=== PATIENT | female | born 1960 | race Caucasian/White ===

== ENCOUNTER 2022-08-15 07:41 | Outpatient (REF) | payer BC, SELFPAY ==
--- NOTE | ~2022-08-15 | MM_ITS ---
EXAMINATION: BONE DENSITOMETRY CLINICAL INDICATION: Menopausal. COMPARISON: None (current study represents initial baseline exam). TECHNIQUE: Using a Multi[employer] DXA System (software version: 13.1) manufactured by [facility], dual-energy x-ray absorptiometry was performed of the lumbar spine and left hip. The images are of good technical quality. Summary results are attached. FINDINGS: AP SPINE L1-L4: BMD 1.032 g/cm2, Z-score -0.1, T-score -1.2, osteopenia. LEFT FEMUR, NECK: BMD 0.771 g/cm2, Z-score -0.7, T-score -1.9, osteopenia. LEFT FEMUR, TOTAL: BMD 0.768 g/cm2, Z-score -1.0, T-score -1.9, osteopenia. IDENTIFIED RISK FACTORS: Menopause, tobacco use (current smoker). HISTORY OF FRACTURE: None listed. MEDICATIONS: None listed. MM/XR DEXA axial skeleton IMPRESSION: 1. DIAGNOSIS: Osteopenia based on the lowest T-score value of -1.9 in the femoral neck and total femur applying World Health Organization criteria. 2. 10-YEAR FRACTURE RISK PREDICTION, FRAX: Major osteoporotic fracture (clinical spine, forearm, hip or shoulder) 10.0%. Hip fracture 2.1%. 3. Treatment Recommendations: NOF guidelines recommend consideration for treatment in postmenopausal women and men age 50 and older presenting with the following: -A hip or vertebral (clinical or morphometric) fracture. -T-score less than or equal to -2.5 at the femoral neck or spine after appropriate evaluation to exclude secondary causes. -Low bone mass at the hip or spine and a 10-year fracture probability by FRAX of greater than or equal to 3% for hip fracture or greater than or equal to 20% for major osteoporotic fracture based on the [place] adapted WHO algorithm. 4. Other Recommendations: All treatment decisions require clinical judgment and consideration of individual patient factors, including patient preferences, comorbidities, previous drug use, risk factors not captured in the FRAX model (e.g. frailty, falls, vitamin D deficiency, increased bone turnover, interval significant decline in bone density) and possible under or overestimation of fracture risk by FRAX. Additional medical evaluation for secondary cause of low bone mineral density may be appropriate. FUTURE SCAN RECOMMENDATION: People with diagnosed cases of osteoporosis or at high risk for fracture should have regular bone mineral density tests. For patients eligible for Medicare, routine testing is allowed once every 2 years. The testing frequency can be increased to one year for patients who have rapidly progressing disease, those who are receiving or discontinuing medical therapy to restore bone mass, or have additional risk factors.
--- NOTE | ~2022-08-15 | MM_ITS ---
EXAMINATION: MM SCREENING DIGITAL BREAST TOMOSYNTHESIS, BILATERAL CLINICAL INFORMATION: Screening. Asymptomatic. The lifetime risk of breast cancer based on the Tyrer-Cuzick Model is 11.4%. COMPARISON: Mammography: None available. TECHNIQUE: Digital breast tomosynthesis is performed in both the craniocaudal and mediolateral oblique views along with computer-aided detection (CAD). Synthesized 2D images are generated from the tomosynthesis. FINDINGS: The breasts are extremely dense, which lowers the sensitivity of mammography (ACR BI-RADS breast composition Category d). There is multiplicity and bilaterality of scattered and grouped calcifications. No definite abnormal dominant mass is appreciated with a region of asymmetric density about the deep superior aspect of the right breast, appearing to represent superimposition of fibroglandular tissue on tomosynthesis views. MM/MM tomosynthesis screening BI IMPRESSION: No mammographic evidence of malignancy. ASSESSMENT: BI-RADS 2: Benign. RECOMMENDATION: Routine annual mammography screening. This patient's information was entered into a reminder system with a target due date for their next mammogram.
== END 2022-08-15 07:42 | disposition home or self-care (01) ==
LOC: HO.MAMMO 07:41
PROVIDERS: PCP Internal Medicine; Visit Provider Internal Medicine
DX: Z12.31 Encounter for screening mammogram for malignant neoplasm of breast (principal); Z13.820 Encounter for screening for osteoporosis; Z78.0 Asymptomatic menopausal state
CPT/HCPCS: 77063; 77067; 77080

== ENCOUNTER 2022-12-11 10:19 | Day surgery (SDC) | payer BC, SELFPAY ==
--- NOTE | 2022-12-10 12:01 | P.CONAN_ITS ---
Documented by User: Jill Vicente NP 12/10/22 12:02 HPI - Anesthesia Eval Consult details Narrative: 62yo F for Colonoscopy [facility] Active Problems Active Problems: All Active Problems (Updated 12/10/22 @ 09:47 by Linda Asher RN) Osteopenia (Acute) Nicotine dependence, cigarettes, uncomplicated (Acute) Past Medical History Medical History (Updated 12/10/22 @ 09:47 by Linda Asher RN) History of uterine fibroid HTN (hypertension) Osteopenia Nicotine dependence, cigarettes, uncomplicated Surgical History Surgical History (Updated 12/11/22 @ 11:02 by Linda Asher RN) History of surgical procedure History of left knee surgery Social History Social History Patient Tobacco Use Status: Current everyday Tobacco user Tobacco use type: Cigarette Cigarettes Per Day: 15 Use of substances other than those prescribed or required for medical reasons: No Are you DNR?: No Advance Directives: No Advance Directives Information Provided: Yes Meds Allergies Allergy/AdvReac Type Severity Reaction Status Date / Time No Known Allergies Allergy Verified 12/11/22 11:02 [No Known Allergies*] Home Medications Medication Instructions Recorded Confirmed Last Taken Type valsartan 80 1 tab PO DAILY 12/10/22 12/11/22 12/11/22 History mg-hydrochlorothiazide 12.5 mg tablet Exam Exam Date and Time: December 10, 2022 120 Assessment and Plan Assessment Anesthesia Assessment: Chart Reviewed Documented by User: Shakir Quevedo MD 12/11/22 18:02 [facility] Past Medical History Medical History (Updated 12/10/22 @ 09:47 by Linda Asher RN) History of uterine fibroid HTN (hypertension) Osteopenia Nicotine dependence, cigarettes, uncomplicated Family History Family history of problems with anesthesia: No Surgical History Surgical History (Updated 12/11/22 @ 11:02 by Linda Asher RN) History of surgical procedure History of left knee surgery History of Problems with Anesthesia: No Social History Social History Patient Tobacco Use Status: Current everyday Tobacco user Tobacco use type: Cigarette Cigarettes Per Day: 15 Use of substances other than those prescribed or required for medical reasons: No Are you DNR?: No Advance Directives: No Advance Directives Information Provided: Yes Meds Allergies Allergy/AdvReac Type Severity Reaction Status Date / Time No Known Allergies Allergy Verified 12/11/22 11:02 [No Known Allergies*] Home Medications Medication Instructions Recorded Confirmed Last Taken Type valsartan 80 1 tab PO DAILY 12/10/22 12/11/22 12/11/22 History mg-hydrochlorothiazide 12.5 mg tablet Exam Airway Mallampati Class: IV Neck ROM: Full Loose/Missing/Broken Teeth: Yes (missing teeth) Assessment and Plan Assessment Anesthesia Assessment: Anesthesia Plan Discussed Final Anesthetic Review Family History of Problems with Anesthesia: No History of Problems with Anesthesia: No NPO: Yes Final Preanesthetic Review: Meds/Allgs Chart Reviewed, Consent Obtained/Reviewed and Anes Risks/Benef Reviewed Patient Risk: Intermediate Procedure Risk: Intermediate Anesthetic Plan Anesthetic Plan: MAC: and Agree w/ Assess. and Plan Disposition: Standard PACU
[2022-12-11 10:58] VITALS: BMI 26.3
[2022-12-11 11:08] VITALS: BP 177/111; PULSE 102; RESP 16; TEMP 36.5; O2SAT 98
[2022-12-11] MEDS: Lactated Ringers 1,000 ML 100 ML IVCONT (11:21)
[2022-12-11 11:22] VITALS: BP 170/106; PULSE 97
--- NOTE | 2022-12-11 13:35 | P.BOP_ITS ---
Brief Operative Note Date of Service: 12/11/22 Pre-op diagnosis: Screening Post-op diagnosis: other (Polyps) Procedure: Colonoscopy to the cecum with hot snare polypectomy x 3. Surgeon: Jacob Mcdonald Anesthesia: MAC Was an Identifier Horse used for this Procedure?: No Estimated blood loss (mL): 0 Pathology: other (A. Polyp at 60cm B. Cecal polyp C. Polyp at 20cm.) Condition: stable Disposition: PACU
[2022-12-11 13:37] VITALS: BP 105/62; PULSE 78; RESP 16; TEMP 36.5; O2SAT 97
[2022-12-11 13:53] VITALS: BP 135/81; PULSE 79; RESP 18; TEMP 36.5; O2SAT 95
--- NOTE | 2022-12-12 01:22 | OP_ITS ---
DATE OF SERVICE: 12/11/2022 SURGEON: Jacob Mcdonald MD INDICATIONS: The patient presents for evaluation of colorectal cancer screening. Full consent is obtained from her for this, including risks of bleeding and perforation. PREOPERATIVE DIAGNOSIS: Colon cancer screening. POSTOPERATIVE DIAGNOSIS: PROCEDURE PERFORMED: Colonoscopy to the cecum with hot snare polypectomy x 3. ESTIMATED BLOOD LOSS: COMPLICATIONS: ANESTHESIA: Monitored anesthesia care. ASSISTANTS: SPECIMENS: POSTOPERATIVE DIAGNOSES: Colon cancer screening, colon polyps, diverticulosis, internal and external hemorrhoids. DESCRIPTION OF PROCEDURE: The patient was placed in left lateral decubitus position. The digital rectal exam revealed prominent external hemorrhoids. The Olympus video pediatric colonoscope was entered into the rectum and advanced easily to the cecum. Once in the cecum, I did identify cecal pouch with appendiceal orifice and a normal-appearing ileocecal valve. The entire cecum was well visualized. In the cecum was approximately a 10 mm, somewhat raised polyp, which was removed by hot snare polypectomy and recovered by suction. The polypectomy site appeared clean, without any sign of residual polyp nor bleeding. The scope was then slowly withdrawn assessing all mucosal surfaces carefully. Preparation was excellent. At 60 cm was an approximately 8 mm polyp, which was removed by hot snare polypectomy and recovered by suction. The polypectomy site appeared clean, without any sign of residual polyp nor bleeding. At 20 cm was an approximately 8 mm polyp, which was removed by hot snare polypectomy and recovered by suction. The polypectomy site appeared clean, without any sign of residual polyp nor bleeding. I did not visualize any other polyps, colitis, or angiodysplasia. There was a mild amount of sigmoid diverticulosis. In the rectum, scope was retroflexed visualizing internal hemorrhoids, but no other pathology. The rectal mucosa appeared normal. The scope was straightened and withdrawn from the patient. She tolerated the procedure well and was returned to the recovery area in stable condition. IMPRESSION: 1. Colon polyps. 2. Diverticulosis. 3. Internal and external hemorrhoids. PLAN: The results of the pathology will be checked. I would recommend a repeat colonoscopy in 5 years for further surveillance. She was advised not to use any aspirin and NSAIDs for 1 week. MD RUTHIE Maritn/MARTHA / [phone] CHEMO
== END 2022-12-11 14:26 | disposition home or self-care (01) ==
PROVIDERS: PCP Internal Medicine; Visit Provider Internal Medicine
PROC: 0DJD8ZZ Inspection of Lower Intestinal Tract, Via Natural or Artificial Opening Endoscopic (ICD-10-PCS; CPT 45378; principal; 2022-12-11 11:40)
DX: Z12.11 Encounter for screening for malignant neoplasm of colon (principal); D12.0 Benign neoplasm of cecum; D12.4 Benign neoplasm of descending colon; D12.5 Benign neoplasm of sigmoid colon; K57.30 Diverticulosis of large intestine without perforation or abscess without bleeding; K64.8 Other hemorrhoids; K64.4 Residual hemorrhoidal skin tags; I10 Essential (primary) hypertension; Z79.1 Long term (current) use of non-steroidal anti-inflammatories (NSAID); Z79.899 Other long term (current) drug therapy; F17.210 Nicotine dependence, cigarettes, uncomplicated
CPT/HCPCS: 45385; 88305; J2250

== ENCOUNTER 2023-02-28 11:10 | Outpatient (REF) | payer BC, SELFPAY ==
--- NOTE | ~2023-02-28 | XR_ITS ---
EXAMINATION: XR BILATERAL KNEES CLINICAL INFORMATION: Bilateral knee pain COMPARISON: Bilateral knee radiographs 11/23/2015. TECHNIQUE: 4 views of each knee. FINDINGS: LEFT KNEE: There has been progression of degenerative changes in the left knee since 11/23/2015 with some increased narrowing and sclerosis of the medial compartment as well as some interval narrowing of the lateral compartment. Degenerative changes are also seen at the patellofemoral compartment with posterior osteophytes. There is an increasing area of sclerosis present in the lateral tibial metaphysis posteriorly. No acute fractures. A small joint effusion is present. No fractures or chondrocalcinosis. RIGHT KNEE: No significant degenerative changes are seen. Joint spaces are well maintained. A tiny joint effusion is present. No fractures or dislocations. XR/XR knee LT 4V IMPRESSION: 1. Progression of degenerative changes in the left knee as described above. 2. No significant degenerative changes in the right knee, but a tiny joint effusion is present. 3 presumed area of sclerosis in the posterior lateral tibial metaphysis.
--- NOTE | ~2023-02-28 | XR_ITS ---
EXAMINATION: XR BILATERAL KNEES CLINICAL INFORMATION: Bilateral knee pain COMPARISON: Bilateral knee radiographs 11/23/2015. TECHNIQUE: 4 views of each knee. FINDINGS: LEFT KNEE: There has been progression of degenerative changes in the left knee since 11/23/2015 with some increased narrowing and sclerosis of the medial compartment as well as some interval narrowing of the lateral compartment. Degenerative changes are also seen at the patellofemoral compartment with posterior osteophytes. There is an increasing area of sclerosis present in the lateral tibial metaphysis posteriorly. No acute fractures. A small joint effusion is present. No fractures or chondrocalcinosis. RIGHT KNEE: No significant degenerative changes are seen. Joint spaces are well maintained. A tiny joint effusion is present. No fractures or dislocations. XR/XR knee RT 4V IMPRESSION: 1. Progression of degenerative changes in the left knee as described above. 2. No significant degenerative changes in the right knee, but a tiny joint effusion is present. 3 presumed area of sclerosis in the posterior lateral tibial metaphysis.
== END 2023-02-28 11:11 | disposition home or self-care (01) ==
LOC: HO.XRAY 11:10
PROVIDERS: PCP Internal Medicine; Visit Provider Internal Medicine
DX: M25.561 Pain in right knee (principal); M25.562 Pain in left knee
CPT/HCPCS: 73564

== ENCOUNTER 2023-03-03 06:33 | Outpatient (REF) | payer BC, SELFPAY ==
[2023-03-03 07:05] LABS: MANUAL DIFF FLAG NO
[2023-03-03 07:45] LABS: Basophils Absolute Auto 0.1 X10*3/uL (0.0-0.2); Basophils Percent Auto 1.1 % (0-2); Eosinophils Absolute Auto 0.1 X10*3/uL (0.0-0.4); Eosinophils Percent Auto 1.8 % (0-4); Hematocrit 41.4 % (37.0-47.0); Hemoglobin 13.4 g/dl (12.0-16.0); Imm Gran Abs Auto 0.04 X10*3/uL (0.00-0.03); Imm Gran Pct Auto 0.5 % (0.0-0.4); Lymphocytes Absolute Auto 1.7 X10*3/uL (1.2-4.9); Lymphocytes Percent Auto 22.5 % (20-40); Mean Corpuscular HGB Conc 32.4 g/dl (31.0-35.0); Mean Corpuscular Hemoglobin 29.9 pg (27.0-33.0); Mean Corpuscular Volume 92.4 fL (80.0-98.0); Mean Platelet Volume 9.6 fL (9.4-12.3); Monocytes Absolute Auto 0.5 X10*3/uL (0.1-1.2); Neutrophils Percent Auto 67.1 % (45-73); Platelet Count 341 X10*3/uL (160-400); Red Blood Count 4.48 X10*6/uL (4.20-5.50); Red Cell Distribution Width 12.6 % (11.0-16.0); White Blood Count 7.4 X10*3/uL (4.8-10.8)
[2023-03-03 07:53] LABS: Estimated Average Glucose 105 mg/dL; Hemoglobin A1c % 5.3 % (<6.0)
[2023-03-03 08:17] LABS: Alanine Aminotransferase 12 U/L (0-31); Albumin Level 4.2 g/dL (3.5-5.0); Alkaline Phosphatase 68 U/L (39-117); Anion Gap 15 (12-20); Aspartate Amino Transferase 12 U/L (5-31); Bilirubin Total 0.4 mg/dL (0.0-1.0); Blood Urea Nitrogen 14 mg/dL (9-16); Calcium 10.4 mg/dL (8.4-10.2); Carbon Dioxide 29 mmol/L (22-29); Chloride 101 mmol/L (96-108); Cholesterol 204 mg/dL (<200); Estimated Glomerular Filt Rate > 60; Glucose Random 111 mg/dL (60-115); HDL Cholesterol 50 mg/dL (>40); LDL Cholesterol Calculated 122 mg/dL (<100); Potassium 3.6 mmol/L (3.3-5.1); Sodium 141 mmol/L (135-145); Total Protein 7.1 g/dL (6.5-8.0); Triglycerides 161 mg/dL (<150)
[2023-03-03 08:33] LABS: Vitamin D 25-OH Total 34.4 ng/mL (>30)
== END 2023-03-03 06:34 | disposition home or self-care (01) ==
LOC: HO.LAB 06:33
PROVIDERS: PCP Internal Medicine; Visit Provider Internal Medicine
DX: E78.00 Pure hypercholesterolemia, unspecified (principal); I10 Essential (primary) hypertension; J44.9 Chronic obstructive pulmonary disease, unspecified; R73.03 Prediabetes; M25.562 Pain in left knee; M85.80 Other specified disorders of bone density and structure, unspecified site
CPT/HCPCS: 36415; 80053; 80061; 82306; 83036; 85025

== ENCOUNTER 2023-08-21 07:45 | Outpatient (REF) | payer BC, SELFPAY ==
--- NOTE | ~2023-08-21 | MM_ITS ---
EXAMINATION: MM SCREENING DIGITAL BREAST TOMOSYNTHESIS, BILATERAL CLINICAL INFORMATION: Screening. Asymptomatic. COMPARISON: Mammography: This study is compared with prior exams dating back to 2022. TECHNIQUE: Digital breast tomosynthesis is performed in both the craniocaudal and mediolateral oblique views along with computer-aided detection (CAD). Synthesized 2D images are generated from the tomosynthesis. FINDINGS: The breasts are heterogeneously dense, which may obscure small masses (ACR BI-RADS breast composition Category c). There are no significant masses, abnormal calcifications, or other abnormalities. There are grouped, benign calcifications in the deep third of the medial aspect of the right breast. MM/MM tomosynthesis screening BI IMPRESSION: No mammographic evidence of malignancy. ASSESSMENT: BI-RADS BI-RADS 2 - Benign Findings RECOMMENDATION: Routine annual mammography screening. 1 year F/U This examination should not preclude the clinical evaluation of a suspicious palpable abnormality. This patient's information was entered into a reminder system with a target due date for their next mammogram.
== END 2023-08-21 07:46 | disposition home or self-care (01) ==
LOC: HO.MAMMO 07:45
PROVIDERS: PCP Internal Medicine; Visit Provider Internal Medicine
DX: Z12.31 Encounter for screening mammogram for malignant neoplasm of breast (principal)
CPT/HCPCS: 77063; 77067

== ENCOUNTER → 2023-08-21 08:00 | Outpatient (BNV) | payer BC, SELFPAY | PROVIDERS: PCP Internal Medicine; Visit Provider Radiology Diagnostic Radiology | DX: Z12.31 Encounter for screening mammogram for malignant neoplasm of breast (principal) | CPT/HCPCS: 77063; 77067 ==

== ENCOUNTER 2024-08-27 07:29 | Outpatient (REF) | payer BC, SELFPAY ==
--- OUTSIDE RECORDS SUMMARY | 2024-08-27 07:31 | XMS_ITS | Patient Health Record ---
Author Organization [facility] Address [address] [place] [address] Care Team Providers Care Medical Services Coordinator Name Role Phone Luna Adan Unavailable [phone] Allergies No Known Allergies Reason For Referral No Information Medications Medication SIG (Take, Route, Frequency, Duration) Notes Start Date End Date Status Valsartan-hydroCHLOROthiaz jillian 80-12.5 MG Oral for 90 Active Social History Tobacco Use: Social History Observation Description Date Details (start date - stop date) Current Smoker NA - NA Tobacco Use/Smoking Question Answer Notes Are you a current smoker How often do you smoke cigarettes? every day How many cigarettes a day do you smoke? 6-10 Alcohol Screen (Audit-C) Question Answer Notes Did you have a drink contain ing alcohol in the past year? Yes How often did you have a dri nk containing alcohol in the past year? 2 to 3 times a week (3 points) How many drinks did you have on a typical day when you were drinking in the past year? 1 or 2 drinks (0 point) Points 3 Interpretation Positive Sexual History Question Answer Notes Had sex in the past 12 months (vaginal, oral, or anal)? No Problems Problem Type SNOMED Code ICD Code Onset Dates Problem Status W/U Status Risk Notes Problem Postmenopausal bleeding (73721403) Postmenopausal bleeding (N95.0) Active confirmed Problem Essential hypertension (54681886) Essential (primary) hypertension (I10) Active confirmed Plan Of Treatment Pending Test Test Name Order Date MM Digital Mammo Screening 01/31/2021 Insurance Providers Payer Name Payer Address Payer Phone Subscriber Number Group Number Insured Name Patient Relationship to Insured Coverage Start Date Coverage End Date [employer] [address] [address] [place] [address] [id number] PRASHANT CHOI Self - patient is the insured Medical (General) History Medical History History ICD Code Essential (primary) hypertension I10 Postmenopausal bleeding N95.0 Surgical History Surgery Date(Month/Year) Knee Surgery 2016 Hospitalization History Reason Date(Month/Year) See Surgical Hx
== END 2024-08-27 07:30 | disposition home or self-care (01) ==
LOC: HO.MAMMO 07:29
PROVIDERS: Visit Provider Obstetrics & Gynecology Gynecology
DX: Z12.31 Encounter for screening mammogram for malignant neoplasm of breast (principal)
CPT/HCPCS: 77063; 77067

== ENCOUNTER → 2024-08-27 07:45 | Outpatient (BNV) | payer BC, SELFPAY | PROVIDERS: Visit Provider Internal Medicine | DX: Z12.31 Encounter for screening mammogram for malignant neoplasm of breast (principal) | CPT/HCPCS: 77063; 77067 ==

== ENCOUNTER 2025-02-03 12:43 | Outpatient (REF) | payer BC, SELFPAY ==
[2025-02-03 13:33] LABS: MANUAL DIFF FLAG NO
[2025-02-03 14:22] LABS: Hematocrit 40.7 % (37.0-47.0); Hemoglobin 13.0 g/dl (12.0-16.0); Imm Gran Abs Auto 0.03 X10*3/uL (0.00-0.03); Imm Gran Pct Auto 0.3 % (0.0-0.4); Lymphocytes Absolute Auto 1.5 X10*3/uL (1.2-4.9); Mean Corpuscular HGB Conc 31.9 g/dl (31.0-35.0); Mean Corpuscular Hemoglobin 29.8 pg (27.0-33.0); Mean Corpuscular Volume 93.3 fL (80.0-98.0); NRBC Abs Auto 0.000 X10*3/uL (0.0-0.012); NRBC Pct Auto 0.0 /100WBC (0.0-0.2); Platelet Count 372 X10*3/uL (160-400); Red Blood Count 4.36 X10*6/uL (4.20-5.50); White Blood Count 8.9 X10*3/uL (4.8-10.8)
[2025-02-03 14:57] LABS: Alanine Aminotransferase 16 U/L (0-31); Albumin Level 4.2 g/dL (3.5-5.0); Alkaline Phosphatase 81 U/L (39-117); Anion Gap 13 (12-20); Aspartate Amino Transferase 22 U/L (5-31); Blood Urea Nitrogen 15 mg/dL (9-16); Calcium 10.1 mg/dL (8.4-10.2); Carbon Dioxide 28 mmol/L (22-29); Chloride 104 mmol/L (96-108); Cholesterol 181 mg/dL (<200); Estimated Glomerular Filt Rate > 60; HDL Cholesterol 59 mg/dL (>40); Potassium 3.6 mmol/L (3.3-5.1); Sodium 141 mmol/L (135-145); Total Protein 7.2 g/dL (6.5-8.0); Triglycerides 63 mg/dL (<150)
[2025-02-03 15:04] LABS: Microalbum/Creatinine Ratio Ur 7.2 ug/mg cr (<30)
--- OUTSIDE RECORDS SUMMARY | 2025-02-03 16:07 | XMS_ITS | Patient Health Record ---
Author Organization [facility] Address [address] [place] [address] Care Team Providers Care Boilermaker Name Role Phone Tia (RETIRED) Saul JEREZ Primary Care Provide r Unavailable Jacob Mcdonald Unavailable [phone] Allergies No Known Allergies Reason For Referral No Information Medications Medication SIG (Take, Route, Frequency, Duration) Notes Start Date End Date Status Valsartan-hydroCHLOROthiaz jillian 80-12.5 MG Oral; Duration: 90 Active Advil 200 MG 1 tablet with food o r milk as needed Orally Three times a day PRN Active Social History Tobacco Use: Social History Observation Description Date Details (start date - stop date) Current Smoker NA - NA Tobacco Use/Smoking Question Answer Notes Patient is a current smoker How often do you smoke cigarettes? every day How many cigarettes a day do you smoke? 11-20 Alcohol Screen Question Answer Notes Did you have a drink contain ing alcohol in the past year? Yes How often did you have a dri nk containing alcohol in the past year? 2 to 3 times a week (3 points) How many drinks did you have on a typical day when you were drinking in the past year? 1 or 2 drinks (0 point) How often did you have 6 or more drinks on one occasion in the past year? Never (0 point) Points 3 Interpretation Positive Section Notes: Smoker 3/4 ppd; no sig alcoh ol Problems Problem Type SNOMED Code ICD Code Onset Dates Problem Status W/U Status Risk Notes Problem Screening for malignant neoplasm of colon (887950281) Screen for colon cancer (Z12.11) Active confirmed Problem Preprocedural examination ([id number]) Preprocedural examination (Z01.818) Active confirmed Problem Diverticulosis of colon (863741924) Diverticulosis of colon (K57.30) Active confirmed Plan Of Treatment Future Test Test Name Order Date COLONOSCOPY 08/13/2022 Insurance Providers Payer Name Payer Address Payer Phone Subscriber Number Group Number Insured Name Patient Relationship to Insured Coverage Start Date Coverage End Date [facility] [employer] [address] [place] [address] [id number] PRASHANT CHOI Self - patient is the insured Medical (General) History Medical History History ICD Code Denies [place],DM,CVA,Lung disease,renal dise ase Hypertension Surgical History Surgery Date(Month/Year) Uterine fibroids Knee
[2025-02-04 07:19] LABS: Syphilis Screen Nonreactive (Nonreactive)
[2025-02-04 08:08] LABS: HBS Num1 3.16 mIU/mL (0-7.99); HBc Num1 0.05 S/CO (0.00-0.79); HBsAGNum1 0.31 S/CO (0.00-0.99); HIV Num 1 0.05 S/CO (0.00-0.99); Hepatitis A Antibody IgM 0.13 Index (0-0.79); Hepatitis B Surface Antigen Negative (Negative); ~HepC Num1 0.06 S/CO (0.00-0.79); ~Hepatitis A Antibody IgM Nonreactive (Nonreactive); ~Hepatitis B Surface Antibody NONREACTIVE (Nonreactive); ~Hepatitis C Antibody Nonreactive (Nonreactive)
== END 2025-02-03 12:44 | disposition home or self-care (01) ==
LOC: HO.LAB 12:43
PROVIDERS: PCP Student in an Organized Health Care Education/Training Program; Visit Provider Student in an Organized Health Care Education/Training Program
DX: Z00.00 Encounter for general adult medical examination without abnormal findings (principal); I10 Essential (primary) hypertension; E78.49 Other hyperlipidemia; L98.9 Disorder of the skin and subcutaneous tissue, unspecified; F17.210 Nicotine dependence, cigarettes, uncomplicated; Z79.899 Other long term (current) drug therapy
CPT/HCPCS: 36415; 80053; 80061; 82043; 82306; 82570; 83036; 84443; 85025; 86704; 86706; 86709; 86780; 86803; 87340; 87389; 96127

== ENCOUNTER 2025-02-03 12:43 | Outpatient (AMB) | payer BC, SELFPAY ==
--- NOTE | 2025-02-03 12:46 | A.OFFPC_ITS ---
Vital Signs 02/03/25 12:51 Height 5 ft 2.6 in Weight 153 lb BMI 27.4 BP 170/92 H Blood Pressure Location Lt brachial Position Sitting Respiration 18 Pulse 99 Pulse Source Pulse Oximeter Temp 97.8 F Temp Source Temporal Artery Scan Pulse Oximetry (%) 98 Oxygen Delivery Method Room Air Intake Visit Reasons: CRIS /Dr Weber [employer] Tech Required: No Accompanied by: Self / Same As Patient Allergies No Known Allergies (No Known Allergies*) Allergy (Verified 02/03/25 12:47) Medication List - Last Reconciled 02/03/25 by Rashawn Vizcaino MD valsartan-hydrochlorothiazide 80-12.5 mg 1 tab PO DAILY 30 days Tobacco use date assessed: 02/03/25 Dental Screening Dental Screen Date: 02/03/25 Did you have a dental visit in the last 12 months?: No Did you have a dental problem in the last 6 months where you did not have access to dental care?: No Was dental information given to patient?: Patient has dentist HPI HPI Comments History of Present Illness Details The patient is a 64-year-old female presenting for management of hypertension. She has a history of hypertension and is prescribed valsartan-hydrochlorothiazide 160-12.5 mg, which she reports taking twice a day, once in the morning and once at night. Her blood pressure today was elevated at 170/92 mmHg. The patient has a significant smoking history of approximately 15 cigarettes per day for 30-40 years, equating to a 38-xayq-zsxn history, but has never attempted to quit or used cessation aids. She reports drinking alcohol, specifically about 3 glasses of wine, 2-3 times per week. She denies any other medical conditions or drug allergies. Past medical history is notable for hyperlipidemia, with an LDL of 122 mg/dL in February 2023, for which she is not on medication. Surgical history includes a fibroid removal. Family history is positive for a maternal heart attack. The patient is up to date on her health screenings, including a colonoscopy in November 2022, a negative mammogram in July, and a Pap smear in 2020. She has had a prior bone scan. She has received the COVID vaccine but not this year's flu shot. 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 She reports a good mood and denies any depression or anxiety. Medical History: - Hypertension - Hyperlipidemia - History of uterine fibroids Surgical History: - Fibroid removal Medications: - Valsartan-hydrochlorothiazide 160-12.5 mg, one tablet taken twice daily for hypertension. Family History: - Mother: History of heart attack. - Denies family history of diabetes or c ancer. Diagnostic Results: - Labs: Cholesterol from February 2023 w as high, with an LDL of 122 mg/dL. - Tests and Diagnostics: Colonoscopy in November 2022 was normal; next one due in 2027. - Tests and Diagnostics: Mammogram in [place] of this year was negative; scheduled for next July. - Tests and Diagnostics: Pap smear in was normal; not due until 2027. Social History: - Employment: Retired third-grade [employer]. - Tobacco Use: Patient smokes approximat richelle 15 cigarettes per day and has for 30-40 years. This corresponds to a 63-auow-lhog smoking history. - Alcohol Use: Patient reports drinking a few glasses of wine (about 3) two to three times per week. - Illicit Drug Use: Denies use of mariju luz maria, heroin, or cocaine. - Lifestyle: Patient reports being busy and enjoying life. Counseled on the importance of staying active and reducing salt intake. [facility] Medical History (Updated 02/03/25 @ 13:18 by Rashawn Vizcaino MD) Facial skin lesion Hyperlipidemia Annual physical exam History of uterine fibroid HTN (hypertension) Osteopenia Nicotine dependence, cigarettes, uncomplicated Surgical History (Updated 02/02/25 @ 16:14 by [place]) History of colonoscopy (~12/11/22) History of ovarian cystectomy History of left knee surgery Social History Housing: House Patient Tobacco Use Status: Current everyday Tobacco user Tobacco use type: Cigarette Cigarettes Per Day: 15 e-Cigarette/Vaping Use: Never Used service: No Current occupational status: retired Questionnaire PHQ-9 Over the last 2 weeks, how often have you been bothered by any of the following problems? 1. Little interest or pleasure in doing things: not at all 2. Feeling down, depressed, or hopeless: not at all 3. Trouble falling or staying asleep, or sleeping too much: not at all 4. Feeling tired or having little energy: not at all 5. Poor appetite or overeating: not at all 6. Feeling bad about yourself - or that you are a failure or have let yourself or your family down: not at all 7. Trouble concentrating on things, such as reading the newspaper or watching television: not at all 8. Moving or speaking so slowly that other people could have noticed. Or the opposite - being so fidgety or restless that you have been moving around a lot more than usual: not at all 9. Thoughts that you would be better off or of hurting yourself in some way: not at all Total score: 0 Depression Screening Interpretation: Negative Depression Screening Done: Yes 28857 - PHQ-9 Billing: Yes Source: Developed by Drs. Jacob Rajput, Regina Buckner, Puma Black and colleagues, with an educational zohaib from [employer]. Thrive Questionnaire Date Thrive assessed: 02/03/25 I am a: Patient What is your living situation today?: I have a steady place to live Within the past 12 months, did the food you bought not last and you didn't have the money to get more?: Never true Within the past 12 months, did you worry whether your food would run out before you got money to buy more?: Never true Do you have trouble paying for medicines?: No Do you have trouble getting transportation to medical appointments?: No Do you have trouble paying your heating and electricity bill?: No Do you have trouble taking care of your child, family member or friend?: No Do you have trouble with day-to-day activities such as bathing, preparing meals, shopping, managing finances, etc.?: No Are you currently unemployed and looking for a job?: No Are you interested in more education?: No THRIVE Score: 0 AUDIT C Alcohol Use Questionnaire (AUDIT-C) 1. How often do you have a drink containing alcohol?: 2-3 times a week 2. How many drinks containing alcohol do you have on a typical day when you are drinking?: 3 or 4 3. How often do you have six or more drinks on one occasion?: Never Total Score: 4 Score Reviewed/Action Taken: Yes MARISOL-7 AMB Questionnaire MARISOL-7 Date MARISOL - 7 assessed: 02/03/25 Feeling nervous, anxious, or on edge: 0 = Not at all Not being able to stop or control worryin = Not at all Worrying too much about different things: 0 = Not at all Trouble relaxin = Not at all Being so restless that it is hard to sit still: 0 = Not at all Becoming easily annoyed or irritable: 0 = Not at all Feeling afraid as if something awful might happen: 0 = Not at all Total MARISOL-7 score (0-4 normal; 5-9 mild; 10-14 moderate; 15-21 severe): 0 Source: Developed by Drs. Jacob Rajput, Regina Buckner, Puma Black and colleagues, with an educational zohaib from [employer]. MARISOL-7 Assessment Billing MARISOL-7 Assessment Tool: MARISOL-7 Assessment 66720 Review of Systems Narrative - Constitutional: Denies weight loss. Denies severe headaches or chest pain as acute symptoms. - Integumentary: Reports a recently noticed, non-bothersome lesion near her ear that has not grown in size. - Psychiatric: Reports good mood. Denies depression or anxiety. - All other systems reviewed and are negative. All systems reviewed & are unremarkable except as reviewed in HPI and above Physical exam (Primary Care) Vital Signs: Last Vital Signs Temp 97.8 F 02/03/25 12:51 Pulse 99 02/03/25 12:51 Resp 18 02/03/25 12:51 BP 170/92 H 02/03/25 12:51 Pulse Ox 98 02/03/25 12:51 Oxygen Delivery Method Room Air 02/03/25 12:51 BMI result Body Mass Index 27.4 Tobacco/Smoking Status: Tobacco use Status Tobacco use date assessed 02/03/25 02/03/25 12:49 Patient Tobacco Use Status Current everyday Tobacco 02/03/25 12:49 Tobacco use type Cigarette 02/03/25 12:49 e-Cigarette/Vaping Use Never Used 02/03/25 12:53 Are you ready to quit: Yes Tobacco cessation counseling provided: Yes Relapse Prevention: discussed the importance of a supportive environment and discussed extending NRT Number of minutes spent counselin CPT code: 80323 - 4-10 Minutes Depression Screening Interpretation: Negative Narrative General: +Alert and oriented, Well nourished, No acute distress. Eye: Pupils are equal, round and reactive to light, Intact accommodation, Extraocular movements are intact, Normal conjunctiva, Vision unchanged. HENT: Normocephalic, Atraumatic, Tympanic membranes are clear, Normal hearing, Oral mucosa is moist, No pharyngeal erythema, Ear canals patent. Respiratory: Lungs CTA bilaterally, No wheeze, Respirations are non-labored. Cardiovascular: Regular rate, Regular rhythm, S1 auscultated, S2 auscultated, No murmur, Good pulses equal in all extremities, Normal peripheral perfusion, No edema. Gastrointestinal: Soft, Non-tender, Non-distended, Normal bowel sounds, No organomegaly. Musculoskeletal: Normal range of motion, Normal strength, No tenderness, No swelling, No deformity, Normal gait. Integumentary: Warm, Dry, [place], Intact. Neurologic: Alert, Oriented, Normal sensory, Normal motor function, No focal defects, Cranial Nerves II-XII are grossly intact, Normal deep tendon reflexes. Psychiatric: Cooperative, Appropriate mood & affect, Normal judgment. Coding Level of Care Code New Pt Level 4 (18123) New Pt Prev Care >65yr (42954) Diagnoses Primary hypertension I10 Hypertension type: primary hypertension Nicotine dependence, cigarettes, uncomplicated F17.210 Other hyperlipidemia E78.49 Hyperlipidemia type: other hyperlipidemia Facial skin lesion L98.9 Annual physical exam Z00.00 Additional Codes PHQ-9 - 30312 - PHQ-9 Billing: Yes ([id number]) MARISOL-7 Assessment Billing - MARISOL-7 Assessment Tool: MARISOL-7 Assessment 15338 ([id number]) Vital Signs *Quality* - CPT code: 98338 - 4-10 Minutes ([id number]) Comment 60400-64 Assessment & Plan Assessment & Plan (1) HTN (hypertension): Comment: - The patient presents with significantly elevated blood pressure (174/100 mmHg) despite taking valsartan-hydrochlorothiazide. - The current regimen of splitting the dose will be adjusted; she is instructed to take both pills together in the morning. - This change is to evaluate the effect of a consolidated dose, as the medication has a long duration of action. - The patient will monitor her blood pressure at home twice daily and follow up in two weeks. - If her readings remain high, medication adjustments will be made. - The possibility of white coat hypertension was discussed. - She was also counseled on reducing dietary salt intake. Code(s): I10 - Essential (primary) hypertension Category: Medical Qualifiers: Hypertension type: primary hypertension Qualified Code(s): I10 - Essential (primary) hypertension (2) Nicotine dependence, cigarettes, uncomplicated: Comment: - The patient has a 71-djxf-shmk smoking history and is at a significantly higher risk for cancer. - She is willing to quit. - A prescription for nicotine patches has been sent to her pharmacy. - She was strongly counseled on smoking cessation, with a goal to quit or significantly reduce smoking within three weeks. - An order for an annual lung cancer screening will be placed. Code(s): F17.210 - Nicotine dependence, cigarettes, uncomplicated Category: Medical (3) Hyperlipidemia: Comment: - The patient had an elevated LDL of 122 in February 2023. - Given her comorbidities and family history, she would typically be a candidate for cholesterol medication based on current ASCVD risk guidelines. - However, a repeat lipid panel will be obtained first. - If the cholesterol remains high, medication will be started, and she will be notified via the patient portal. Code(s): E78.5 - Hyperlipidemia, unspecified Category: Medical Qualifiers: Hyperlipidemia type: other hyperlipidemia Qualified Code(s): E78.49 - Other hyperlipidemia (4) Facial skin lesion: Comment: - The patient recently noticed a small, stable bump near her ear. - On examination, it appears to be a subcutaneous lesion, possibly an enlarged lymph node or cyst, and does not have concerning features. - The plan is to monitor the lesion for any changes in size. - It will be re-evaluated at the follow-up visit. Code(s): L98.9 - Disorder of the skin and subcutaneous tissue, unspecified Category: Medical (5) Annual physical exam: Comment: - Comprehensive baseline lab work was ordered, including electrolytes, CBC, diabetes screen, hepatitis panel, HIV, cholesterol, syphilis, thyroid function, and vitamin D levels, along with a urinalysis. - The patient was advised to get her annual flu shot. - She is up to date on other age-appropriate screenings. Code(s): Z00.00 - Encounter for general adult medical examination without abnormal findings Category: Medical Plan: Health Maintenance: - Tobacco Cessation: Counseled on quitting smoking due to a 67-ksrb-zpbv history. A prescription for nicotine patches was provided. - Cancer Screening: An order for an annual lung cancer screening will be placed due to her significant smoking history. - Immunizations: Advised to get the flu shot. She is up-to-date on her COVID vaccine. - Cardiovascular Health: Counseled on salt reduction to help manage hypertension. Counseled on the importance of maintaining an active lifestyle. - Screenings Update: The patient is current with her colonoscopy (due 2027), mammogram (due next July), and Pap smear (due 2027). - Laboratory Monitoring: Comprehensive labs were ordered to establish a baseline, including a lipid panel to re-evaluate her hyperlipidemia. Patient was informed and verbally consented to the use of an ambient scribe for clinic note documentation during this visit. Plan I discussed with the patient her significantly elevated blood pressure readings today, 170/92 and 174/100 mmHg. I explained the rationale for adjusting her current medication regimen by taking both tablets of valsartan- hydrochlorothiazide in the morning rather than splitting the dose, as this may provide better 24-hour coverage. We discussed the importance of home blood pressure monitoring to differentiate from potential white coat hypertension and to guide future treatment, with a plan to follow up in two weeks. I emphasized that if she experiences severe headaches or chest pain, she should seek immediate medical attention. I strongly counseled her on the urgent need for smoking cessation, given her 12-llrs-vtgu history and the associated health risks, including various cancers. I prescribed nicotine patches to assist her quitting attempt and informed her that a referral for an annual lung cancer screening would be placed. We reviewed her previous high cholesterol result and discussed that based on current guidelines, she would be a candidate for medication. I explained that we would repeat the labs first to confirm the levels before initiating treatment. Regarding the lesion near her ear, I reassured her that it does not currently appear concerning but advised her to monitor it for any changes. I outlined the plan for comprehensive baseline blood work and recommended she get her annual flu shot. The patient agreed with the plan and scheduled a follow-up appointment in two weeks. Orders: Orders Complete Blood Count Auto Diff Today Z00.00 - Encounter for general adult medical examination without abnormal findings Hemoglobin A1c Today Z00.00 - Encounter for general adult medical examination without abnormal findings Hepatitis A,B,C Profile Today Z00.00 - Encounter for general adult medical examination without abnormal findings HIV Ab/Ag Today Z00.00 - Encounter for general adult medical examination without abnormal findings Lipid Panel Today Z00.00 - Encounter for general adult medical examination without abnormal findings TSH reflex Free T4 Today Z00.00 - Encounter for general adult medical examination without abnormal findings Vitamin D 25-OH Total Today Z00.00 - Encounter for general adult medical examination without abnormal findings Microalbumin, Random (w Creat) Today Z00.00 - Encounter for general adult medical examination without abnormal findings Comprehensive Met. Panel Today Z00.00 - Encounter for general adult medical examination without abnormal findings Syphilis Screen Today Z00.00 - Encounter for general adult medical examination without abnormal findings Referrals Lung Cancer Screening Referral F17.210 - Nicotine dependence, cigarettes, uncomplicated Medications: New nicotine 1 patch transdermal Q24H 28 ea 0RF Patient Instructions: - Take your blood pressure medication (valsartan-hydrochlorothiazide) as one dose in the morning instead of splitting it between morning and evening. - Check your blood pressure at home twice a day (once in the morning and once in the afternoon/evening) and write down the numbers. Make sure you are relaxed and seated for 10-15 minutes before checking. - We have sent a prescription for nicotine patches to your pharmacy ([facility] in [place]) to help you quit smoking. Please start using them as directed. - We have ordered an annual lung cancer screening for you. The facility will contact you to schedule it. - Go to the hospital lab to have your blood drawn today. The orders are already in the system. - Reduce the amount of salt in your diet, as this can help lower your blood pressure. - Please get your annual flu shot. You can get this at a local pharmacy. - Keep an eye on the small bump near your ear. Let us know if it grows in size or changes in any way. - Return to the clinic in two weeks for a follow-up visit to review your blood pressure and progress. - If you experience severe headaches or chest pain, seek emergency medical care immediately.
[2025-02-03 12:51] VITALS: BP 170/92; PULSE 99; RESP 18; TEMP 36.6; O2SAT 98; BMI 27.4
== END 2025-02-03 13:13 | disposition home or self-care (01) ==
LOC: HO.HMCHD 12:43
PROVIDERS: PCP Student in an Organized Health Care Education/Training Program; Visit Provider Student in an Organized Health Care Education/Training Program
DX: Z00.00 Encounter for general adult medical examination without abnormal findings (principal); I10 Essential (primary) hypertension; F17.210 Nicotine dependence, cigarettes, uncomplicated; E78.49 Other hyperlipidemia; L98.9 Disorder of the skin and subcutaneous tissue, unspecified

== ENCOUNTER 2025-02-17 13:40 | Outpatient (AMB) | payer BC, SELFPAY ==
--- NOTE | 2025-02-17 13:44 | A.OFFPC_ITS ---
Vital Signs 02/17/25 13:48 Height 5 ft 2 in Weight 153 lb BMI 28.0 BP 160/86 H Blood Pressure Location Lt brachial Position Sitting Pulse 75 Pulse Source Pulse Oximeter Temp 98.6 F Temp Source Temporal Artery Scan Pulse Oximetry (%) 97 Oxygen Delivery Method Room Air Intake Visit Reasons: 2 Week F/U Bld pressure check Intake Note: Possible arthritis pain [employer] Required: No Accompanied by: Self / Same As Patient Allergies No Known Allergies (No Known Allergies*) Allergy (Verified 02/17/25 13:44) Medication List - Last Reconciled 02/17/25 by Rashawn Vizcaino MD atorvastatin (Lipitor) 20 mg PO BEDTIME 90 days cholecalciferol (vitamin D3) 1,250 mcg PO QWEEK 12 weeks nicotine 1 patch transdermal Q24H valsartan-hydrochlorothiazide 80-12.5 mg 1 tab PO DAILY 30 days Tobacco use date assessed: 02/03/25 Dental Screening Dental Screen Date: 02/03/25 HPI HPI Comments History of Present Illness Details History of Present Illness The patient is a 64 year old individual presenting for management of chronic conditions and smoking cessation. The patient successfully quit smoking 10 days ago with the assistance of nicotine patches and experiences urges no more than three times a day, which quickly resolve. The patient has a 25-year history of psoriasis, which initially presented after an untreated streptococcal infection. The condition has been manageable, improving with sun exposure, and the patient's hands have cleared up as of two months ago. The patient also has psoriasis on the base of the foot and is not currently using any medicated creams but is interested in trying some. The patient reports facial redness, consistent with rosacea, which is not bothersome but is aesthetically displeasing, and has not been previously treated. For hypertension, the patient is prescribed hydrochlorothiazide-valsartan 12.5- 80 mg and has been taking two pills in the morning, but home blood pressure readings are variable, ranging up to the 160s. The patient also takes atorvastatin 20 mg at night for high cholesterol without any muscle pain, and a weekly vitamin D supplement. The patient experiences swollen wrists, which are worse in cold weather, and manages the pain with Tylenol, having taken two pills this morning for the swelling. Overall blood work is reportedly great. Medical History: - Psoriasis, diagnosed 25 years ago foll owing an untreated streptococcal infection. - Hypertension - Hypercholesterolemia - Vitamin D deficiency - Rosacea - Arthritis - Nicotine dependence Medications: - Hydrochlorothiazide-valsartan 12.5/80 mg, two tablets in the morning for hypertension - Vitamin D supplement, once weekly - Atorvastatin 20 mg, at night for hyper cholesterolemia - Nicotine patch for smoking cessation - Tylenol for arthritis pain Diagnostic Results: - Labs: Recent blood work is reported as great. - Home Blood Pressure Monitoring: Readin gs have been variable, ranging from 124 to the 160s. Social History - Substance Use: The patient is a former smoker who quit 10 days prior to the visit and is currently using nicotine patches. - Housing: The patient lives in [place] for half of the year. [facility] Medical History (Updated 02/17/25 @ 14:14 by Rashawn Vizcaino MD) Arthritis Psoriasis Vitamin D deficiency Facial skin lesion Hyperlipidemia Annual physical exam History of uterine fibroid HTN (hypertension) Osteopenia Nicotine dependence, cigarettes, uncomplicated Surgical History (Updated 02/02/25 @ 16:14 by [place]) History of colonoscopy (~12/11/22) History of ovarian cystectomy History of left knee surgery Social History Housing: House Patient Tobacco Use Status: Current everyday Tobacco user Tobacco use type: Cigarette Cigarettes Per Day: 15 e-Cigarette/Vaping Use: Never Used service: No Current occupational status: retired Questionnaire Thrive Questionnaire Date Thrive assessed: 02/03/25 MARISOL-7 AMB Questionnaire MARISOL-7 Date MARISOL - 7 assessed: 02/03/25 Source: Developed by Drs. Jacob Rajput, Regina Buckner, Puma Black and colleagues, with an educational zohaib from [employer]. Review of Systems Narrative Review of Systems - Dermatologic: Reports a history of psoriasis for 25 years with manageable symptoms, currently present on the hands and feet. - Also reports facial redness that is not bothersome. - Musculoskeletal: Reports swollen wrists, aggravated by cold weather. - Denies muscle pains from atorvastatin. - Psychiatric: Reports occasional urges to smoke, no more than three times daily. - Reports feeling anxious about high blood pressure readings. All systems reviewed & are unremarkable except as reviewed in HPI and above Physical exam (Primary Care) Vital Signs: Last Vital Signs Temp 98.6 F 02/17/25 13:48 Pulse 75 02/17/25 13:48 BP 160/86 H 02/17/25 13:48 Pulse Ox 97 02/17/25 13:48 Oxygen Delivery Method Room Air 02/17/25 13:48 BMI result Body Mass Index 28.0 Tobacco/Smoking Status: Tobacco use Status Tobacco use date assessed 02/03/25 02/17/25 13:52 Patient Tobacco Use Status Current everyday Tobacco 02/17/25 13:52 Tobacco use type Cigarette 02/17/25 13:52 e-Cigarette/Vaping Use Never Used 02/17/25 13:52 Thrive Assessment: Date of Thrive Assessment Date Thrive assessed 02/03/25 02/17/25 13:52 Narrative Physical Exam General: +Alert and oriented, Well nourished, No acute distress. Eye: Pupils are equal, round and reactive to light, Intact accommodation, Extraocular movements are intact, Normal conjunctiva, Vision unchanged. HENT: Normocephalic, Atraumatic, Tympanic membranes are clear, Normal hearing, Oral mucosa is moist, No pharyngeal erythema, Ear canals patent. Respiratory: Lungs CTA bilaterally, No wheeze, Respirations are non-labored. Cardiovascular: Regular rate, Regular rhythm, S1 auscultated, S2 auscultated, No murmur, Good pulses equal in all extremities, Normal peripheral perfusion, No edema. Gastrointestinal: Soft, Non-tender, Non-distended, Normal bowel sounds, No organomegaly. Musculoskeletal: Normal range of motion, Normal strength, No tenderness, No swelling, No deformity, Normal gait. Integumentary: Warm, Dry, Vamo, Intact. Noted redness on cheeks, possibly rosacea. Neurologic: Alert, Oriented, Normal sensory, Normal motor function, No focal defects, Cranial Nerves II-XII are grossly intact, Normal deep tendon reflexes. Psychiatric: Cooperative, Appropriate mood & affect, Normal judgment. Coding Level of Care Code Est Pt Level 4 (17661) Complex visit Add On G2211 Diagnoses Primary hypertension I10 Hypertension type: primary hypertension Other hyperlipidemia E78.49 Hyperlipidemia type: other hyperlipidemia Nicotine dependence, cigarettes, uncomplicated F17.210 Psoriasis L40.9 Facial skin lesion L98.9 Arthritis M19.90 Vitamin D deficiency E55.9 Assessment & Plan Assessment & Plan (1) HTN (hypertension): Comment: - Despite taking a double dose of hydrochlorothiazide-valsartan, home blood pressures remain elevated. - The plan is to add amlodipine 5 mg daily and to prescribe a higher-dose combination pill of valsartan-hydrochlorothiazide to replace the two separate pills. - The patient was counseled on weight loss of 5-10 pounds, salt reduction, and continuing to monitor blood pressures at home. Code(s): I10 - Essential (primary) hypertension Category: Medical Qualifiers: Hypertension type: primary hypertension Qualified Code(s): I10 - Essential (primary) hypertension (2) Hyperlipidemia: Comment: - The condition is stable on current medication. - The plan is to continue atorvastatin 20 mg at night. Code(s): E78.5 - Hyperlipidemia, unspecified Category: Medical Qualifiers: Hyperlipidemia type: other hyperlipidemia Qualified Code(s): E78.49 - Other hyperlipidemia (3) Nicotine dependence, cigarettes, uncomplicated: Comment: - The patient has successfully quit smoking for 10 days using nicotine patches. - The plan is to continue using the patches, with the option to obtain more [id number] or via prescription if urges to smoke persist. Code(s): F17.210 - Nicotine dependence, cigarettes, uncomplicated Category: Medical (4) Psoriasis: Comment: - The patient has a long-standing history with involvement of hands and feet. - The plan includes prescribing a clobetasol cream for topical use and placing a referral to a floor worker well service. - The patient was educated on the benefits of skin hydration and sun exposure. Code(s): L40.9 - Psoriasis, unspecified Category: Medical (5) Facial skin lesion: Comment: - Facial erythema is noted. - The plan is to prescribe topical metronidazole cream for twice-daily application. Code(s): L98.9 - Disorder of the skin and subcutaneous tissue, unspecified Category: Medical (6) Arthritis: Comment: - The patient reports wrist swelling and pain. - The recommendation is to continue managing symptoms with Tylenol, up to two 500 mg tablets twice a day as needed. Code(s): M19.90 - Unspecified osteoarthritis, unspecified site Category: Medical (7) Vitamin D deficiency: Comment: - The patient is currently on supplementation. - The plan is to complete the 12-week course of once-weekly vitamin D and then discontinue it. Code(s): E55.9 - Vitamin D deficiency, unspecified Category: Medical Plan: Health Maintenance: - Smoking Cessation: The patient quit smoking 10 days ago and is using nicotine patches. - Weight Management: Advised to lose 5-15 pounds to help manage blood pressure. - Diet: Recommended reducing salt intake. - Follow-up: A telehealth appointment is scheduled in two months to monitor blood pressure. - Dermatology: A referral will be sent for psoriasis management. Patient was informed and verbally consented to the use of an ambient scribe for clinic note documentation during this visit. Plan I commended the patient on quitting smoking 10 days ago, which is a significant achievement. We discussed that with continued abstinence, the patient's breathing, taste, and smell will improve. I advised the patient to continue using nicotine patches and to obtain more if urges to smoke persist. Regarding the patient's uncontrolled hypertension, I explained the plan to add amlodipine 5 mg and prescribe a higher-dose combination pill for the valsartan- hydrochlorothiazide to improve control. I reassured the patient that the current blood pressure readings are very close to the target and that lifestyle changes like weight loss and salt reduction will also help. For the patient's psoriasis, I recommended a topical cream and a referral to a floor worker well service for specialized management. We also discussed initiating topical metronidazole for the facial rosacea. For arthritis pain, I recommended continuing Tylenol as needed and advised against stronger pain medications due to the risk of dependence. We agreed on a follow-up appointment in two months, which will be conducted over the phone since the patient will be in [place], to monitor blood pressure and overall progress. Orders: Referrals Dermatology Referral L40.9 - Psoriasis, unspecified Medications: New metronidazole 0.75% 1 appl topical BID 45 grams 3RF amlodipine 5 mg PO DAILY 90 tabs 0RF clobetasol 0.05% 1 appl topical BID 2 weeks 118 mL 0RF valsartan-hydrochlorothiazide 160-25 mg 1 tab PO DAILY 90 tabs 0RF amlodipine 5 mg PO DAILY 90 tabs 0RF clobetasol 0.05% 1 appl topical BID 118 mL 0RF 2 weeks valsartan-hydrochlorothiazide 160-25 mg 1 tab PO DAILY 90 tabs 0RF Discontinued valsartan-hydrochlorothiazide 80-12.5 mg Discontinued Reason: Doctor's Order 1 tab PO DAILY 30 days 30 tabs 1RF Patient Instructions: - Continue using nicotine patches to help you stay smoke-free. - If you run out and still have cravings, you can buy more [id number] or call our office for a prescription. - For your high blood pressure, you will now take two medications: a new combination pill of valsartan-hydrochlorothiazide and a new pill called amlodipine 5 mg. - Please check your blood pressure at home once or twice a week. - To help lower your blood pressure, try to reduce salt in your diet and aim for a weight loss of 5-15 pounds. - Apply the clobetasol cream to the psoriasis on your hands and feet as directed. - Apply the metronidazole cream to your face twice a day for redness. - Continue taking your weekly vitamin D supplement until the 12-week supply is finished, and then you do not need to take it anymore. - Continue taking your atorvastatin 20 mg pill at night for cholesterol. - For arthritis pain in your wrists, you can take up to four 500 mg Tylenol pills per day (for example, two in the morning and two at night). - Our office will send a referral to a staffing specialist (floor worker well service) for your psoriasis. - We will have a follow-up appointment over the phone in two months.
[2025-02-17 13:48] VITALS: BP 160/86; PULSE 75; TEMP 37; O2SAT 97; BMI 28.0
--- OUTSIDE RECORDS SUMMARY | 2025-02-17 19:07 | XMS_ITS | Patient Health Record ---
Author Organization [facility] Address [address] [place] [address] Care Team Providers Care Golf Teacher Name Role Phone Luna Adan Unavailable [phone] Allergies No Known Allergies Reason For Referral No Information Medications Medication SIG (Take, Route, Frequency, Duration) Notes Start Date End Date Status Valsartan-hydroCHLOROthiaz jillian 80-12.5 MG Oral; Duration: 90 Active Social History Tobacco Use: Social [...] W/U Status Risk Notes Problem Postmenopausal bleeding (67781569) Postmenopausal bleeding (N95.0) Active confirmed Problem Essential hypertension (51587841) Essential (primary) hypertension (I10) Active confirmed Plan Of Treatment Pending Test Test Name Order Date MM Digital Mammo Screening 01/31/2021 Insurance Providers Payer Name Payer Address Payer Phone Subscriber Number Group Number Insured Name Patient Relationship to Insured Coverage Start Date Coverage End Date [employer] [address] [place] [address] [id number] PRASHANT CHOI Self - patient is the insured Medical (General) History Medical History History ICD Code Essential (primary) hypertension I10 Postmenopausal bleeding N95.0 Surgical History Surgery Date(Month/Year) Knee Surgery 2016 Hospitalization History Reason Date(Month/Year) See Surgical Hx
--- OUTSIDE RECORDS SUMMARY | 2025-02-17 19:07 | XMS_ITS | Patient Health Record ---
Author Organization [facility] Address [address] [place] [address] Care Team Providers Care Wood Model Builder Name Role Phone Tia (RETIRED) Saul JEREZ Primary Care Provide r Unavailable Jacob Mcdonald Unavailable [phone] Allergies No Known Allergies Reason For Referral No Information Medications Medication SIG (Take, Route, Frequency, Duration) Notes Start Date End Date Status Valsartan-hydroCHLOROthiaz jillian 80-12.5 MG Tablet Oral; Duration: 90 Active Advil 200 MG Tablet 1 tablet with food o r milk as needed Orally Three times a day PRN Active Social History Tobacco Use: Social History Observation Description Date Details (start date - stop date) Current Smoker NA - NA Social History Drugs/Alcohol: Social Info Question Answer Notes Alcohol Screen Did you have a drink containing alcohol in the past year? Yes How often did you have a drink containing alcohol in the past year? 2 to 3 times a week (3 points) How many drinks did you have on a typical day when you were drinking in the past year? 1 or 2 drinks (0 point) How often did you have 6 or more drinks on one occasion in the past year? Never (0 point) Points 3 Interpretation Positive Tobacco Use: Social Info Question Answer Notes Tobacco Use/Smoking Patient is a current smoker How often do you smoke cigarettes? every day How many cigarettes a day do you smoke? 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 Section Notes: Smoker 3/4 ppd; no sig alcoh ol Problems Problem Type SNOMED Code ICD Code Onset Dates Problem Status W/U Status Risk Notes Problem Screening for malignant neoplasm of colon (709341434) Screen for colon cancer (Z12.11) Active confirmed Problem Preprocedural examination (684690222816823) Preprocedural examination (Z01.818) Active confirmed Problem Diverticulosis of colon (584826313) Diverticulosis of colon (K57.30) Active confirmed Plan Of Treatment Future Test Test Name Order Date COLONOSCOPY 08/13/2022 Insurance Providers Payer Name Payer Address Payer Phone Subscriber Number Group Number Insured Name Patient Relationship to Insured Coverage Start Date Coverage End Date [facility] [employer] [address] [place] [address] [id number] PRASHANT CHOI Self - patient is the insured Medical (General) History Medical History History ICD Code Denies IA,DM,CVA,Lung disease,renal dise ase Hypertension Surgical History Surgery Date(Month/Year) Uterine fibroids Knee
== END 2025-02-17 14:21 | disposition home or self-care (01) ==
LOC: HO.HMCHD 13:40
PROVIDERS: PCP Student in an Organized Health Care Education/Training Program; Visit Provider Student in an Organized Health Care Education/Training Program
DX: I10 Essential (primary) hypertension (principal); E78.49 Other hyperlipidemia; F17.210 Nicotine dependence, cigarettes, uncomplicated; L40.9 Psoriasis, unspecified; L98.9 Disorder of the skin and subcutaneous tissue, unspecified; M19.90 Unspecified osteoarthritis, unspecified site; E55.9 Vitamin D deficiency, unspecified